=== PATIENT | male | born 1990 | race Two or more races ===

== ENCOUNTER 2024-11-28 16:00 | Emergency (ER) | payer BC, OTHER ==
[2024-11-28 16:19] VITALS: RESP 18; TEMP 98.2
--- NOTE | 2024-11-28 16:53 | ED ---
Chest Pain HPI - General Source: patient Mode of arrival: ambulatory Limitations: no limitations <Zeinab Jurado - Last Filed: 11/28/24 16:52> - General Source: patient, RN notes reviewed, old records reviewed <Juno Davis - Last Filed: 11/28/24 22:36> - General Chief Complaint: Chest Pain Stated Complaint: chest pain and tightness Time Seen by Provider: 11/28/24 16:52 - History of Present Illness Initial Comments: 34-year-old male presenting with chief complaint of chest pain. States it is located on the left side of the chest and describes this as a tightness. Started a few days ago and worsened today while he was at work. Admits to s hortness of breath. (Zeinab Jurado) Patient is a 34-year-old male with no significant past medical history presents emergency department complaining of chest wall discomfort and tightness. States it is over the left inferior rib that is reproducible movement and palpation. Originally seen as a quick note and I evaluated the patient when he was placed in a room. Recently did have some upper respiratory symptoms with cough, congestion. No fevers. States it was bugging him more today which is why presents for further evaluation. States it hurts when he takes a deep breath and pinpoint over the inferior most rib on the left side. No obvious injuries. Does lift heavy objects at work. Presents for further evaluation at this time. No history of cardiac disease or stents. (Juno Davis) - Related Data Home Medications Medication Instructions Recorded Confirmed No Known Home Medications 11/28/24 11/28/24 Allergies Allergy/AdvReac Type Severity Reaction Status Date / Time iodine AdvReac Rash/Hives Verified 11/28/24 20:11 Review of Systems ROS Other: All systems not noted in ROS Statement are negative. <Zeinab Jurado - Last Filed: 11/28/24 16:52> ROS Other: All systems not noted in ROS Statement are negative. <Juno Davis - Last Filed: 11/28/24 22:36> ROS Statement: Those systems with pertinent positive or pertinent negative responses have been documented in the HPI. Review of Systems: CONST: Denies fever EYES: Denies blurry vision ENT: Denies nasal congestion C/V: Endorses chest wall pain RESP: Denies shortness of breath GI: Denies abdominal pain : Denies dysuria SKIN: Denies rash. MSK: Denies joint pain. NEURO: Denies headache (Juno Davis) EKG Findings - EKG Comments: EKG Findings:: 12-lead Electrocardiogram Interpretation Note. EKG was reviewed and interpreted by myself. 12-lead ECG performed at 1612 is interpreted by me as revealing normal sinus rhythm at a rate of 97 beats per minute. [place] is normal. [place] interval is 149 ms, QRS duration 91 ms, QTc is 385 ms.. There were no ST or T wave abnormalities to suggest myocardial ischemia or injury. R wave progression across the precordium was satisfactory. By my interpretation this EKG is non-diagnostic for acute ischemia. 12-lead Electrocardiogram Interpretation Note. EKG was reviewed and interpreted by myself. 12-lead ECG performed at 2148 is interpreted by me as revealing normal sinus rhythm at a rate of 61 beats per minute. [place] is normal. [place] interval is 178 ms, QRS duration is 96 ms, QTc is 434 ms.. There were no ST or T wave abnormalities to suggest myocardial ischemia or injury. R wave progression across the precordium was satisfactory. By my interpretation this EKG is non-diagnostic for acute ischemia. - EKG Results: EKG: interpreted by ERMD <Juno Davis - Last Filed: 11/28/24 22:36> Past Medical History Additional Past Medical History / Comment(s): skull fraction, kidney stone History of Any Multi-Drug Resistant Organisms: None Reported Past Psychological History: No Psychological Hx Reported Smoking Status: Never smoker Past Alcohol Use History: Rare Past Drug Use History: None Reported <Zeinab Jurado - Last Filed: 11/28/24 16:52> General Exam Limitations: no limitations <Zeinab Jurado - Last Filed: 11/28/24 16:52> <Juno Davis - Last Filed: 11/28/24 22:36> - General Exam Comments Initial Comments: Visual Physical Exam Vital signs reviewed General: Well-appearing, nontoxic, no acute distress. Head: Normocephalic, atraumatic Eyes: PERRLA, EOMI ENT: Airway patent Chest: Nonlabored breathing Skin: No visual rash, normal skin tone Neuro: Alert and oriented 3 Musculoskeletal: No gross abnormalities (Zeinab Jurado) General: Appears in no acute distress. HEAD: Normal with no signs of head trauma. EYES: EOMI ENT: Hearing grossly intact, normal oropharynx. RESPIRATORY: Clear breath sounds bilaterally. No wheezes, rales, or rhonchi. C/V: Regular rate and rhythm. S1 and S2 auscultated, no edema, peripheral pulses 2+ and intact throughout. Left inferior anterior rib pain on palpation. ABD: Abd is soft, nontender, nondistended EXT: Normal range of motion, no obvious deformity SKIN: No rashes or lesions observed on exposed skin. NEURO: Alert and oriented x 4. (Juno Davis) Course Vital Signs 11/28/24 11/28/24 16:16 21:19 Temperature 98.2 F Pulse Rate 96 50 L Respiratory 18 18 Rate Blood Pressure 136/72 100/74 O2 Sat by Pulse 99 98 Oximetry Chest Pain MDM <Zeinab Jurado - Last Filed: 11/28/24 16:52> <Juno Davis - Last Filed: 11/28/24 22:36> - MDM I performed the quick note portion of this visit, electronically signed Zeinab Jurado PA-C (Zeinab Jurado) Was pt. sent in by a medical professional or institution ([facility], [employer], urgent care, hospital, or fci...) When possible be specific @ -No Did you speak to anyone other than the patient for history (EMS, parent, family, police, friend...)? What history was obtained from this source @ -No Did you review nursing and triage notes (agree or disagree)? Why? @ -I reviewed and agree with nursing and triage notes Were old charts reviewed (outside hosp., previous admission, EMS record, old EKG, old radiological studies, urgent care reports/EKG's, fci records)? Report findings @ -No old charts were reviewed Differential Diagnosis (chest pain, altered mental status, abdominal pain women, abdominal pain men, vaginal bleeding, weakness, fever, dyspnea, syncope, headache, dizziness, GI bleed, back pain, seizure, CVA, palpatations, mental health, musculoskeletal)? @ -Differential Chest Pain: Stable Angina, Unstable Angina, STEMI, NSTEMI Aortic Dissection, Pneumothorax, Musculoskeletal, Esophageal Spasm GERD, Cholecystitis, Pancreatitis, Zoster, this is not meant to be an all-inclusive list. EKG interpreted by me (3pts min.). @ -As above X-rays interpreted by me (1pt min.). @ -Chest x-ray reveals no obvious acute cardiopulmonary process. CT interpreted by me (1pt min.). @ -None done U/S interpreted by me (1pt. min.). @ -None done What testing was considered but not performed or refused? (CT, X-rays, U/S, labs)? Why? @ -None What meds were considered but not given or refused? Why? @ -None Did you discuss the management of the patient with other professionals (professionals i.e. , PA, FILTER CLEANER, lab, RT, psych nurse, social media marketing analyst, retail merchandiser technician, teacher, fundraising officer, onsite case manager)? Give summary @ -No Was smoking cessation discussed for >3mins.? @ -No Was critical care preformed (if so, how long)? @ -No Were there social determinants of health that impacted care today? How? (Homelessness, low income, unemployed, alcoholism, drug addiction, transportation, low edu. Level, literacy, decrease access to med. care, retirement, rehab)? @ -No Was there de-escalation of care discussed even if they declined (Discuss DNR or withdrawal of care, Hospice)? DNR status @ -No What co-morbidities impacted this encounter? (DM, HTN, Smoking, COPD, CAD, Cancer, CVA, ARF, Chemo, Hep., AIDS, mental health diagnosis, sleep apnea, morbid obesity)? @ -None Was patient admitted / discharged? Hospital course, mention meds given and route, prescriptions, significant lab abnormalities, going to OR and other pertinent info. @ -Patient presents with what appears to be chest wall pain. Workup started as a quick note. I evaluated patient when he was placed in room. Vitals within acceptable limits. We will obtain generalized workup, chest x-ray. Patient will be symptomatically treat with IV fluids. We will attempt treatment with nitro tablets. Patient was in agreement this plan. Nitro tablets had no effect on his pain. Seems to be reproducible and worse with certain movements. Labs returned unremarkable. This includes undetectable troponin, normal EKG. Chest x-ray unremarkable. On reevaluation, I discussed his workup. We did opt to obtain second EKG as well as repeat 3-hour troponin. He was in agreement this plan. Repeat troponin remains undetectable. Repeat EKG remains unchanged. At this time, patient is feeling improved following Toradol. We discussed his workup. He will be discharged home at this time. Diagnosis chest wall pain. Strict return precautions discussed. Given a work note. He was in agreement this plan. I instructed the patient to follow up with their PCP in the next 1-3 days. I explained that the patient should return to the emergency department if they experience any worsening symptoms. Strict return precautions were discussed with the patient. The patient expressed understanding of these instructions. I answered all questions that the patient had. The patient was discharged home in good condition with their prescriptions and follow up information. Undiagnosed new problem with uncertain prognosis? @ -No Drug Therapy requiring intensive monitoring for toxicity (Heparin, Nitro, Insulin, Cardizem)? @ -No Were any procedures done? @ -No Diagnosis/symptom? @ -Chest wall pain Acute, or Chronic, or Acute on Chronic? @ -Acute Uncomplicated (without systemic symptoms) or Complicated (systemic symptoms)? @ -Uncomplicated Side effects of treatment? @ -No Exacerbation, Progression, or Severe Exacerbation? @ -No Poses a threat to life or bodily function? How? (Chest pain, [place], [place], pneumonia, PE, COPD, DKA, ARF, appy, cholecystitis, CVA, Diverticulitis, Homicidal, Suicidal, threat to staff... and all critical care pts) @ -Unlikely at this time (Juno Davis) Disposition <Zeinab Jurado - Last Filed: 11/28/24 16:52> Is patient prescribed a controlled substance at d/c from ED?: No Time of Disposition: 22:28 <Juno Davis - Last Filed: 11/28/24 22:36> Clinical Impression: Chest wall pain Disposition: HOME SELF-CARE Condition: Good Instructions (If sedation given, give patient instructions): Chest Wall Pain (ED) Additional Instructions: Your diagnosis is chest wall pain. Please return to the emergency department for any worsening symptoms. Follow-up with your PCP in the next 1 to 3 days. Return to the ER if worsening symptoms in the meantime. Referrals: None,Stated [Primary Care Provider] - 1-2 days Forms: Area PCPs
--- NOTE | 2024-11-28 17:25 | XR ---
EXAMINATION TYPE: XR chest 2V DATE OF EXAM: 11/28/2024 5:21 PM COMPARISON: None. CLINICAL INDICATION: Male, 34 years old with history of Chest Pain, TECHNIQUE: XR chest 2V view(s) obtained. FINDINGS: The heart size is normal. The pulmonary vasculature is normal. The lungs are clear. IMPRESSION: 1. No acute pulmonary process. [facility], , 11/28/2024 5:23 PM
[2024-11-28 20:02] LABS: Basophils # (A) 0.1 k/uL (0-0.2); Basophils % (A) 1 %; Eosinophils # (A) 0.3 k/uL (0-0.7); Eosinophils % (A) 3 %; HCT 40.9 % (39.0-53.0); HGB 13.3 gm/dL (13.0-17.5); Lymphocytes # (A) 2.6 k/uL (1.0-4.8); Lymphocytes % (A) 22 %; MCH 28.2 pg (25.0-35.0); MCHC 32.6 g/dL (31.0-37.0); MCV 86.6 fL (80.0-100.0); Mean Platelet Volume 7.8; Monocytes # (A) 0.5 k/uL (0-1.0); Monocytes % (A) 4 %; Neutrophils # (A) 8.3 k/uL (1.3-7.7); Neutrophils % (A) 69 %; Platelet Count 349 k/uL (150-450); RBC 4.73 m/uL (4.30-5.90); RDW 12.1 % (11.5-15.5)
[2024-11-28 20:11] LABS: Chloride 101 mmol/L (98-107)
[2024-11-28 20:14] LABS: ALT 40 U/L (4-49); AST 31 U/L (17-59); African American GFR (CKD) >90 (>60 ml/min/1.73 sqM); Albumin 4.1 g/dL (3.5-5.0); Alkaline Phosphatase 66 U/L (38-126); Anion Gap 7 mmol/L; Blood Urea Nitrogen 21 mg/dL (9-20); Calcium 9.2 mg/dL (8.4-10.2); Carbon Dioxide 30 mmol/L (22-30); Glucose 98 mg/dL (74-99); Non-African American GFR(CKD) >90 (>60 ml/min/1.73 sqM); Potassium 4.5 mmol/L (3.5-5.1); Sodium 138 mmol/L (137-145); Total Bilirubin 0.3 mg/dL (0.2-1.3); Total Protein 7.6 g/dL (6.3-8.2)
[2024-11-28 20:16] LABS: INR 0.9 (<1.2); Partial Thromboplastin Time 25.9 sec (22.0-30.0); Prothrombin Time 10.2 sec (10.0-12.5)
[2024-11-28] MEDS: NITROGLYCERIN SL TABS 0.4 MG TAB SUBLINGUAL STA (20:18)
[2024-11-28] MEDS: ASPIRIN 81 MG PO STA (20:20)
[2024-11-28] MEDS: SODIUM CHLORIDE 0.9% 1,000 ML IV STA (20:20)
[2024-11-28 20:41] LABS: Influenza A Not Detected (Not Detectd); Influenza B Not Detected (Not Detectd); RSV Not Detected (Not Detectd)
[2024-11-28] MEDS: KETOROLAC 15 MG/ML 1 ML VIAL IVP STA (21:38)
[2024-11-28 22:32] VITALS: BP 108/73; PULSE 60
[2024-11-28] MEDS: DEXAMETHASONE SOD PHOSPHATE 4 MG/ML 1 ML VIAL IVP STA (22:39)
== END 2024-11-28 22:40 | disposition home or self-care (01) ==
LOC: EC 16:00
DX: R07.89 Other chest pain (principal); Z91.041 Radiographic dye allergy status
CPT/HCPCS: 36415; 93005; 80053; 83735; 84484; 85025; 85610; 85730; 87636; 71046; 99285; 96374; 96375; 96361; J1100; J1885